=== PATIENT | male | born 1985 | race Caucasian/White ===

== ENCOUNTER 2019-12-21 10:03 | Emergency (ER) | payer BC ==
[2019-12-21 11:42] VITALS: BP 155/98
--- NOTE | 2019-12-21 11:44 | UC ---
Throat Pain/Nasal Miguel HPI - HPI Summary HPI Summary: 34 y/o male presents to the urgent care c/o sore throat, sinus congestion, chills, body aches w/ yellowish nasal discharge chills for the past 2 days. This morning he had chills and subjective low grade fever. He had not taken any medication to alleviate symptoms. Pt reports he traveled to [place] and returned this past . He was exposed to people coughing in the plane. Mild SOB, and couldn't sleep well due to cough. Pt denies chest pain, dizziness, abdominal pain, N/V/D. - History of Current Complaint Chief Complaint: UCGeneralIllness Stated Complaint: SORE THROAT,COUGH,LETHARGY Time Seen by Provider: 12/21/19 11:42 Hx Obtained From: Patient Onset/Duration: Gradual Onset, Lasting Days - 2 days, Still Present, Worse Since - today w/ subjective fever Severity: Moderate Pain Intensity: 7 - sore throat Pain Scale Used: 0-10 Numeric Cough: Productive - yellowish phlegm Associated Signs & Symptoms: Positive: Sinus Discomfort, Nasal Discharge, Fever , Other - cough. Negative: Wheezing - Epiglottits Risk Factors Epiglottis Risk Factors: Negative - Allergies/Home Medications Allergies/Adverse Reactions: Allergies Allergy/AdvReac Type Severity Reaction Status Date / Time honey Allergy anaph Verified 12/21/19 11:42 Home Medications: Home Medications Fenofibrate 150 mg PO 12/21/19 [History] Lisinopril TAB* [Prinivil TAB 10 MG*] 1 tab PO DAILY 12/21/19 [History Confirmed 12/21/19] PMH/Surg Hx/FS Hx/Imm Hx Previously Healthy: Yes Cardiovascular History: Hypertension - Surgical History Surgical History: None - Family History Known Family History: Positive: Hypertension - Social History Lives: With Family Alcohol Use: Occasionally Substance Use Type: None Smoking Status (MU): Never Smoked Tobacco Review of Systems All Other Systems Reviewed And Are Negative: Yes Constitutional: Positive: Fever, Chills, Fatigue, Other - body aches Skin: Positive: Negative Eyes: Positive: Negative ENT: Positive: Sore Throat, Ear Ache - B/L ear pressure, Nasal Discharge - yellowish, Sinus Congestion, Other - PND Respiratory: Positive: Cough - productive w/ yellowish phlegm Cardiovascular: Positive: Negative Gastrointestinal: Positive: Negative Genitourinary: Positive: Negative Motor: Positive: Negative Neurovascular: Positive: Negative Musculoskeletal: Positive: Myalgia Neurological/Mental Status: Positive: Headache Psychological: Positive: Negative Is Patient Immunocompromised?: No Physical Exam - Summary Physical Exam Summary: VITAL SIGNS: Reviewed. GENERAL: Patient is a well developed and nourished male who is sitting comfortably in the examining table. Patient is not in any acute respiratory distress. HEAD AND FACE: No signs of trauma. No ecchymosis, hematomas or skull depressions. No sinus tenderness. EYES: PERRLA, EOMI x 2, No injected conjunctiva, no nystagmus. No photophobia. EARS: Hearing grossly intact. Ear canals and tympanic membranes are within normal limits. MOUTH: Positive pharynx with mild erythema, no exudates, No B/L tonsillar enlargement , no exudate. Uvula in midline. edematous nasal mucosa w/ clear nasal discharge, clear PND NECK: Supple, trachea is midline, Positive anterior cervical lymphadenopathy, no JVD, no carotid bruit, no c-spine tenderness, neck with full ROM. No meningeal signs, no Kernig's or brudzinskis signs. CHEST: Symmetric, no tenderness at palpation LUNGS: Clear to auscultation bilaterally. No wheezing or crackles. CVS: Regular rate and rhythm, S1 and S2 present, no murmurs or gallops appreciated. ABDOMEN: Soft, non-tender. No signs of distention. No rebound no guarding, and no masses palpated. Bowel sounds are normal. EXTREMITIES: FROM in all major joints, no edema, no cyanosis or clubbing. NEURO: Alert and oriented x 3. No acute neurological deficits. Pt follows commands. SKIN: Dry and warm Triage Information Reviewed: Yes Vital Signs: Initial Vital Signs Temp 99.9 F 12/21/19 11:39 Pulse 90 12/21/19 11:39 Resp 17 12/21/19 11:39 BP 155/98 12/21/19 11:39 Pulse Ox 100 12/21/19 11:39 Throat Pain/Nasal Course/Dx - Course Course Of Treatment: 34 y/o male presents to the urgent care c/o sore throat, sinus congestion, chills, body aches w/ yellowish nasal discharge chills for the past 2 days. This morning he had chills and subjective low grade fever. He had not taken any medication to alleviate symptoms. Pt reports he traveled to [place] and returned this past . He was exposed to people coughing in the plane. Mild SOB, and couldn't sleep well due to cough. Pt denies chest pain, dizziness, abdominal pain, N/V/D. Hx obtained. Pt is hemodynamically stable, A&OX3,Pt febrile w/ viral syndrome on examination. O2Sat:100%. Rapid influenza A&B: negative. Rapid strep: negative. Pt given Ibuprofen PO to alleviate symptoms. Pt tolerated well medication and felt better. Pt w/ PMHX of HTN and his having similar symptoms at home now. PT w/ Hx travel, mild SOB , and cough, he meets the criteria for COVID-19 which is ordered. Pt advised COVID19 results will have a turn over of 2-6 days. Pt advised to quarantine while waiting for the results and Health department will contact him to notify them of any abnormality. Pt advised to take ibuprofen PO or Tylenol to alleviate symptom. Increase hydration and boost his immune system by eating well, taking Vitamin C and avoiding strenuous exercise. Pt's BP is elevated today and advised to decrease salt in diet, monitor BP and f/u with PCP if BP continues to be elevated for further management. D/C instructions explained. Pt understood and agreed w/ plan of care. and states he will be isolated as recommended. - Differential Dx/Diagnosis Differential Diagnosis/HQI/PQRI: Laryngitis, Mononucleosis, Pharyngitis, Sinusitis, Tonsillitis, URI, Other - COVID Provider Diagnosis: Acute viral syndrome, Uncontrolled hypertension Discharge ED - Sign-Out/Discharge Documenting (check all that apply): Patient Departure - D/C home w/ isolation recommendation All imaging exams completed and their final reports reviewed: No Studies - Discharge Plan Condition: Stable Disposition: HOME Patient Education Materials: Viral Syndrome (ED) Forms: *Work Release Referrals: [facility] [place] [facility] [Outside] - 3 Days Additional Instructions: 1- Oropharyngeal swabs have been sent to the lab, you will be notified of any abnormality as soon as we get the results. 2-Please Take Ibuprofen or Tylenol PO q6-8hrs prn as instructed after meals to alleviate fever, or myalgias. Take Vitamin C to boost your immune system. Increase fluid intake, eat well, rest and avoid strenuous exercise. 3- Please isolate at home until you get the results. The Health department will contact you and will ask for temperature, follow their recommendations. 4-If you develop any SOB, chest pain, any respiratory distress, weakness, nausea and vomiting please return to the urgent care or go immediately to the ER for further management. 5- Your BP is elevated today advised to decrease salt in diet, monitor BP and f/ u with PCP for further management. Talking points for In-home Isolation What is In-Home Isolation? You are suspected to have a disease which can be easily spread to others. To minimize potential spread of disease, you must stay from others at a suitable location approved by the health department. Usually this can be accomplished in your home with placing you in your own bedroom with use of your own bathroom. If needed, the health department will arrange for alternate housing. You are not to leave the approved isolation location for any purpose until released by [facility]. You cannot go to work, school, public places, or social gatherings. Expect a phone call from a health department nurse to discuss your isolation location. You then will receive a written isolation order from the health department explaining the limitations on your movement and for what time period. What about household members? Household members are to stay away from you inside your home and will not be allowed to use your bedroom or bathroom. What about visitors? Visitors or non-household members are not allowed to enter your home for the duration of the isolation period. What should I expect while isolated? Health Department nurses will monitor your condition daily by phone to assess your health status. You must cooperate with this daily activity. How will I get food and my prescription medications? Basic essential daily living items like food, water, and prescribed medications will be supplied to you throughout the duration of isolation should you need such items and are without support systems who can provide them. What happens if I develop new symptoms and need medical treatment? If you develop new symptoms of illness, you must call the health department immediately at to report. A health department nurse will determine if you should leave the premises for the sole purpose of seeking medical attention and will instruct you on the precautions you must take to prevent exposure to others. - Billing Disposition and Condition Condition: STABLE Disposition: Home
[2019-12-21] MEDS ORDERED: Ibuprofen TAB* 400 MG PO ONE (12:35)
[2019-12-21 12:39] LABS: Influenza A Molecular Negative (Negative); Influenza B Molecular Negative (Negative)
== END 2019-12-21 13:21 | disposition home or self-care (01) ==
LOC: UCEAST 10:03
DX: B34.9 Viral infection, unspecified (principal); I10 Essential (primary) hypertension; J02.9 Acute pharyngitis, unspecified; R09.81 Nasal congestion; R68.83 Chills (without fever); R09.89 Other specified symptoms and signs involving the circulatory and respiratory systems; R53.83 Other fatigue; M79.10 Myalgia, unspecified site; R05 Cough; H92.03 Otalgia, bilateral; R09.82 Postnasal drip; R51 Headache; Z79.899 Other long term (current) drug therapy
CPT/HCPCS: 87651; 99202; A9270-GY; G0463